=== PATIENT | male | born 1985 | race Caucasian/White ===

== ENCOUNTER 2017-06-04 14:27 | Emergency (ER) | payer OTHER ==
[2017-06-04 14:43] VITALS: RESP 16; TEMP 99
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
[2017-06-04 15:46] VITALS: BP 130/82; PULSE 60; O2SAT 98
== END 2017-06-04 15:46 | disposition home or self-care (01) ==
DX: S16.1XXA Strain of muscle, fascia and tendon at neck level, initial encounter (principal); S66.911A Strain of unspecified muscle, fascia and tendon at wrist and hand level, right hand, initial encounter; S39.92XA Unspecified injury of lower back, initial encounter; V43.02XA Car driver injured in collision with other type car in nontraffic accident, initial encounter; Y92.410 Unspecified street and highway as the place of occurrence of the external cause; Y93.89 Activity, other specified
CPT/HCPCS: L3807